=== PATIENT | male | born 1945 | race Caucasian/White ===

== ENCOUNTER → 2018-03-07 | Outpatient (CLI) | payer MEDICARE ==
[~2018-03-07] MED LIST: PROHANCE 279.3MG/ML 15ML VIAL (A9576) As Ordered; PROHANCE 279.3MG/ML 5ML VIAL (A9576) As Ordered
== END ==
LOC: M RAD 09:57
DX: C71.4 Malignant neoplasm of occipital lobe (principal); G93.89 Other specified disorders of brain
CPT/HCPCS: A9576